=== PATIENT | male | born 1950 | race Caucasian/White ===

== ENCOUNTER → 2016-12-14 | Outpatient (CLI) | payer OTHER | LOC: FIMAGING 20:03 | PROVIDERS: ATTEND Internal Medicine | DX: M51.36 Other intervertebral disc degeneration, lumbar region (principal); E75.22 Gaucher disease; M51.34 Other intervertebral disc degeneration, thoracic region; M51.26 Other intervertebral disc displacement, lumbar region; M46.96 Unspecified inflammatory spondylopathy, lumbar region; M46.97 Unspecified inflammatory spondylopathy, lumbosacral region; M48.06 Spinal stenosis, lumbar region; M48.07 Spinal stenosis, lumbosacral region ==

== ENCOUNTER 2017-07-15 13:02 | Inpatient (IN) | payer OTHER ==
[2017-07-15] MEDS ORDERED: ONDANSETRON 4 MG/2 ML VIAL ONE (14:10)
[2017-07-15] MEDS ORDERED: NS 1,000 ML IV ONE ×2 (14:10→15:46)
[2017-07-15] MEDS ORDERED: ONDANSETRON 4 MG/2 ML VIAL IVP ONE (14:10)
--- NOTE | 2017-07-15 14:26 | EDPHY ---
General Narrative: CHIEF COMPLAINT: Vomiting diarrhea HISTORY OF PRESENT ILLNESS: Patient presents with complaints of 3 weeks duration of vomiting and diarrhea. He says this started gradually and has been constant duration. Symptoms wax and wane but never resolved. He feels very dehydrated, weak and head at times. No chest pain. No syncope. No shortness of breath. No bloody emesis or stool. The stool was clear 1st but now somewhat brown tinged. Seen by his primary care physician in the interim without any improvement of the symptoms. No formal workup. No other associated complaints or modifying factors. REVIEW OF SYSTEMS: Ten systems reviewed and are negative unless otherwise noted in the HPI PCP: Dr. Soriano SPECIALISTS: PAST MEDICAL HISTORY: Gaucher's disease, asplenia, neuropathy PAST SURGICAL HISTORY: splenectomy remotely SOCIAL HISTORY: Nonsmoker. FAMILY HISTORY: Noncontributory EXAMINATION General Appearance: Alert, no distress, ill-appearing but nontoxic Head: normocephalic, atraumatic Eyes: Pupils equal and round, no conjunctival pallor or injection ENT, Mouth: Mucous membranes dry. Airway is widely patent. Neck: Normal inspection, supple, non-tender Respiratory: Lungs are clear to auscultation. No wheezing, rhonchi or crackles Cardiovascular: Regular rate and rhythm. No murmur. Symmetric radial is 2+. Gastrointestinal: Abdomen is soft and nondistended. No tympany. No rigidity. Bowel sounds present all 4 quadrants Back: non-tender, no bony abnormalities Neurological: A&O, nonfocal, strength is symmetric in the extremities. Skin: Warm and dry, no rash. No petechiae or purpura. No ecchymosis. Extremities: Nontender, no pedal edema Psychiatric: Mood and affect normal DIFFERENTIAL DIAGNOSES: Including but not limited to gastroenteritis, enteritis, colitis, gastritis, dehydration, protein calorie malnutrition MDM: 2:10 p.m. Nausea, vomiting, diarrhea and weakness over the past 3 weeks. No bloody emesis or stool. No chest pain. No syncope. Patient does feel weak and dehydrated. He does appear to be dehydrated, but his vital signs are within normal limits. I have ordered IV placement, IV fluid, laboratory studies and stool pathogen panel. 3:00 p.m. Laboratory studies reveal normal hemoglobin. Chemistry pending. 3:20 p.m. Chemistry is within normal limits. Pre-albumin is low at 6.0. IV fluids still infusing. 3:45 p.m. Re-evaluated the patient. He is feeling somewhat better. No vomiting. No diarrhea. Still feels very weak. I discussed the case with his primary care physician Dr. Soriano. We are in agreement that the patient needs to be admitted to the hospital for IV fluid and further supplemental nutrition. Dr. Soriano is requesting further IV fluid resuscitation and iron studies as ordered. He admitted in stable condition. SUPERVISION: Patient was independently examined, but I discussed the case with my secondary supervising physician Dr. Marsh. - History Smoking Status: Former smoker - Objective Vital Signs: Initial Vital Signs Temperature (C) 97.5 F 07/15/17 13:03 Heart Rate 91 07/15/17 13:03 Respiratory Rate 20 07/15/17 13:03 Blood Pressure 105/82 H 07/15/17 13:03 O2 Sat (%) 94 07/15/17 13:03 O2 Delivery Mode Nasal Cannula O2 (L/minute) 2 Allergies/Adverse Reactions: trolamine salicylate [From Aspercreme] Allergy (Intermediate, Verified 07/15/17 13:03) Rash vancomycin Allergy (Verified 07/15/17 13:03) RASH AT IV SITE Home Medications: Medication Instructions Recorded DULoxetine [Cymbalta 30 MG (*)] 30 mg PO DAILY@1000 #0 cap 11/01/15 LORazepam [Ativan (*)] 1 mg PO TID@1000,1800,2200 #0 tab 11/01/15 Pregabalin [Lyrica 50mg (*)] 100 mg PO BID@1000,1800 #0 cap 11/01/15 Sulfamethox/Tmp 800/160 mg 1 ea PO BID@1000,2200 #0 tab 11/01/15 [Bactrim DS] Eliglustat Tartrate [Cerdelga] 84 mg PO BID 11/14/15 oxyCODONE/APAP 5/325 [Percocet 2 tab PO Q4 PRN #30 tab 11/18/15 5/325 (*)] Laboratory Results: Laboratory Results 07/15/17 14:16 07/15/17 14:16 07/15/17 07/15/17 14:16 14:16 WBC 5.59 10^3/uL 10^3/uL (3.80-9.50) RBC 3.93 10^6/uL L 10^6/uL (4.40-6.38) Hgb 12.0 g/dL L g/dL (13.7-17.5) Hct 34.3 % L % (40.0-51.0) MCV 87.3 fL fL (81.5-99.8) MCH 30.5 pg pg (27.9-34.1) MCHC 35.0 g/dL g/dL (32.4-36.7) RDW 17.7 % H % (11.5-15.2) Plt Count 677 10^3/uL H 10^3/uL (150-400) MPV 8.9 fL fL (8.7-11.7) Neut % (Auto) 70.1 % % (39.3-74.2) Lymph % (Auto) 19.9 % % (15.0-45.0) [place] % (Auto) 6.6 % % (4.5-13.0) Eos % (Auto) 0.7 % % (0.6-7.6) Baso % (Auto) 1.1 % % (0.3-1.7) Nucleat RBC Rel Count 0.4 % H % (0.0-0.2) Absolute Neuts (auto) 3.92 10^3/uL 10^3/uL (1.70-6.50) Absolute Lymphs (auto) 1.11 10^3/uL 10^3/uL (1.00-3.00) Absolute Monos (auto) 0.37 10^3/uL 10^3/uL (0.30-0.80) Absolute Eos (auto) 0.04 10^3/uL 10^3/uL (0.03-0.40) Absolute Basos (auto) 0.06 10^3/uL 10^3/uL (0.02-0.10) Absolute Nucleated RBC 0.02 10^3/uL H 10^3/uL (0-0.01) Immature Gran % 1.6 % H % (0.0-1.1) Immature Gran # 0.09 10^3/uL 10^3/uL (0.00-0.10) Sodium 135 mEq/L mEq/L (135-145) Potassium 3.8 mEq/L mEq/L (3.5-5.2) Chloride 98 mEq/L mEq/L (97-110) Carbon Dioxide 27 mEq/l mEq/l (22-31) Anion Gap 10 mEq/L mEq/L (8-16) BUN 14 mg/dL mg/dL (7-23) Creatinine 1.1 mg/dL mg/dL (0.7-1.3) Estimated GFR > 60 Glucose 104 mg/dL H mg/dL (70-100) Calcium 8.1 mg/dL L mg/dL (8.5-10.4) Total Bilirubin 0.6 mg/dL mg/dL (0.1-1.4) Conjugated Bilirubin 0.4 mg/dL mg/dL (0.0-0.5) Unconjugated Bilirubin 0.2 mg/dL mg/dL (0.0-1.1) AST 25 IU/L IU/L (17-59) ALT 27 IU/L IU/L (21-72) Alkaline Phosphatase 135 IU/L H IU/L (38-126) Total Protein 5.8 g/dL L g/dL (6.3-8.2) Albumin 2.9 g/dL L g/dL (3.5-5.0) Prealbumin 6.0 mg/dL L mg/dL (17.6-36.0) Lipase 34 IU/L IU/L (23-300) Medications Given: Discontinued Medications Sodium Chloride (Ns) 1,000 mls @ 0 mls/hr IV EDNOW ONE; Wide Open PRN Reason: Protocol Stop: 07/15/17 14:11 Last Admin: 07/15/17 14:19 Dose: 1,000 mls Ondansetron HCl (Zofran) 4 mg IVP EDNOW ONE Stop: 07/15/17 14:11 Last Admin: 07/15/17 14:19 Dose: 4 mg Departure - Departure Disposition: [facility] Acute Clinical Impression: Hypovolemia dehydration, Protein-calorie malnutrition, mild Condition: Good
[2017-07-15 14:28] LABS: PLATELET COUNT 677 10^3/uL (150-400)
[2017-07-15] MEDS: D5W 1/2 NS W/ 20 KCl/L 1,000 ML IV SCH (20:46)
[2017-07-15] MEDS: LORazepam 1 MG TAB PO SCH (22:04)
[2017-07-15] MEDS: oxyCODONE IR 5 MG TAB PO SCH (22:04)
[2017-07-15] MEDS: methylPREDNISolone SOD SUCC 40 MG/ML VIAL IVP SCH (22:04)
[2017-07-16] MEDS: D5W 1/2 NS W/ 20 KCl/L 1,000 ML IV SCH ×3 (03:39→21:54)
--- NOTE | 2017-07-16 07:45 | GHP ---
[f rep st] HISTORY AND PHYSICAL DATE OF ADMISSION: 07/15/2017 REASON FOR ADMISSION: Diarrhea, weakness. HISTORY: Patient is a 66-year-old male with history of Gaucher disease as well as ulcerative colitis . He has also had recurrent iron deficiency anemia. He has had recurrent bouts of colitis over the last year, requiring intermittent courses of prednisone. When he gets off the prednisone, he tends t o get a recurrence of the colitis. He is having increased symptoms of diarrhea, some fever over the last 3 weeks. He presents with weakness, persistent diarrhea, and feeling like he is not able to valorie e in adequate fluids. PAST MEDICAL HISTORY: Significant for multiple joint replacements as well as an infection in a repla margo hip joint. REVIEW OF SYSTEMS: He has had a very dry mouth. It is almost difficult to swallow, his mouth is so dry. No shortness of breath, chest pain, or palpitations. He has had persistent frequent diarrhea, but only occasional streaks of blood, not the usual bloody diarrhea he has had in the past. PHYSICAL EXAMINATION: GENERAL APPEARANCE: Shows a 66-year-old male who appears to be weak and older than his stated age. VITAL SIGNS: Blood pressure is 114/72, pulse is 62, oxygen saturation 95% on 2 L. EYES: Pupils equal and reactive. LUNGS: Clear to auscultation. HEART: Regular rate and rhy thm. ABDOMEN: Bowel sounds are present, slightly diminished. He has no abdominal tenderness. EXTR EMITIES: No peripheral edema. Moves all extremities well. NEUROLOGIC: He is oriented to time, cortez ce, and person. He is able to produce a somewhat brown to maroon-appearing loose stool, which has been sent to the [facility] for further evaluation. IMPRESSION: 1. Diarrhea. 2. Weakness. 3. Gaucher disease. 4. Ulcerative colitis. PLAN: Will admit. Will hydrate. Send stools for pathology. Will initiate intravenous Solu-Medrol. /[id number]/MODL
[2017-07-16] MEDS ORDERED: HERBAL DRUGS PO SCH (09:00)
[2017-07-16] MEDS: [UNRECOGNIZED DRUG - OTHER] PO SCH ×2 (09:55→21:52)
--- NOTE | 2017-07-16 10:35 | ASMTCASEMG ---
Living Arrangements What is your living Answers: Alone arrangement? Who do you live with? Type Of Residence What kind of residence do Answers: Apartment you live in? Discharge Plan Comments Coordination Status Comments Notes: Patient is a 66yo single male with a hx of Gaucher disease as well as ulcerative colitis. He was admitted for diarrhea, weakness, and dehydration. No therapies have been ordered yet. CM will follow. Date Signed: 07/16/2017 10:35 AM Electronically Signed By:Lupe Pandya LCSW
[2017-07-16] MEDS: DULoxetine 30 MG CAP PO SCH (10:36)
[2017-07-16] MEDS: methylPREDNISolone SOD SUCC 40 MG/ML VIAL IVP SCH ×2 (10:36→22:04)
[2017-07-16] MEDS: LORazepam 1 MG TAB PO SCH ×3 (10:36→21:52)
[2017-07-16] MEDS: oxyCODONE IR 5 MG TAB PO SCH ×3 (10:36→21:52)
[2017-07-16] MEDS: PREGABALIN 100 MG CAP PO SCH ×2 (12:51→18:52)
[2017-07-17] MEDS: D5W 1/2 NS W/ 20 KCl/L 1,000 ML IV SCH (06:51)
--- NOTE | 2017-07-17 07:33 | SOAPPROG ---
Downtime Inpatient MD Late Entry SOAP Note: Due to human errorS", I am recreating the following medical record entry as of this date and time based on the information specified below: Information on which this medical record entry is based: (MD: Please list items, such as nursing notes, labs, imaging, etcetera) S: Diarrhea is mildly improved. He is hungry. O: stool negative for pathogens. Lungs clear. ABD non-tener. Stool positive for blood. A: Ulcerative colitis. Gauche's disease. Anemia from chronic blood loss and Gauche's disease. P: will increase steroid dose. FOllow symptoms.
[2017-07-17] MEDS: methylPREDNISolone SOD SUCC 40 MG/ML VIAL IVP SCH ×2 (08:02→20:34)
[2017-07-17] MEDS: [UNRECOGNIZED DRUG - OTHER] PO SCH ×2 (08:02→20:35)
[2017-07-17] MEDS: oxyCODONE IR 5 MG TAB PO SCH ×3 (08:02→21:55)
[2017-07-17] MEDS: DULoxetine 30 MG CAP PO SCH (09:34)
[2017-07-17] MEDS: PANTOPRAZOLE SODIUM 40 MG TAB PO SCH ×2 (09:34→20:34)
[2017-07-17] MEDS: LORazepam 1 MG TAB PO SCH ×3 (09:34→21:55)
[2017-07-17] MEDS: PREGABALIN 100 MG CAP PO SCH ×2 (09:34→18:01)
--- NOTE | 2017-07-17 21:08 | SOAPPROG ---
SOAP Progress Note Assessment/Plan: Assessment:ulcerative colitis. Gauche's disease. IMproving with hydreation and steroids. Plan: Stop IV. continue with increased dose of steroids. Follow closely. 07/17/17 21:07 Subjective: doing a little better. Diarrhea is a little more formed. Objective: Vital Signs Temp Pulse Resp BP Pulse Ox 97.9 F 56 L 16 107/69 94 07/17/17 20:57 07/17/17 20:57 07/17/17 20:57 07/17/17 20:57 07/17/17 20:57 07/16/17 07/17/17 07/18/17 05:59 05:59 05:59 Intake Total 1166 1915 1472 Balance 1166 1915 1472 Lungs clear. NO abdominal tenderness. COR RRR ICD10 Worksheet Patient Problems: Problems Problem Status Onset Hypovolemia dehydration Acute Protein-calorie malnutrition, mild Acute Diarrhea Acute Fever Acute Hematochezia Acute Ulcerative (chronic) enterocolitis Acute
[2017-07-18 05:40] LABS: PLATELET COUNT 544 10^3/uL (150-400)
[2017-07-18] MEDS: DULoxetine 30 MG CAP PO SCH (09:50)
[2017-07-18] MEDS: oxyCODONE IR 5 MG TAB PO SCH ×3 (09:50→21:28)
[2017-07-18] MEDS: LORazepam 1 MG TAB PO SCH ×3 (09:50→21:28)
[2017-07-18] MEDS: PREGABALIN 100 MG CAP PO SCH ×2 (09:51→16:47)
[2017-07-18] MEDS: PANTOPRAZOLE SODIUM 40 MG TAB PO SCH ×2 (09:51→21:28)
[2017-07-18] MEDS: [UNRECOGNIZED DRUG - OTHER] PO SCH ×2 (09:53→21:29)
--- NOTE | 2017-07-18 09:56 | SOAPPROG ---
SOAP Progress Note Assessment/Plan: Assessment: 66 yo male with Gaucher's, UC, admitted w/ diarrhea and weakness progressive for a couple weeks prior to admission. -diarrhea has stopped, feels better, energy slowly increasing, will change from IV solumedrol to po prednison bid starting tonight after IV dose this am. -decreased h/h - likely in part due to dilution, heme + but has known diarrhea and UC - will recheck h/h and follow closely, consider GI consult if further drop in h/h -anxiety - cont on lorazepam/duloxetine -dispo - if doing ok on oral pred starting tonight, h/h stable in am consider d/ c home tomorrow as long as GI sx's still good -will write order for not to awaken pt while sleeping for vitals Plan: 07/18/17 09:52 Subjective: Doing ok, unhappy with being woken up last night, bowels better Objective: Vital Signs Temp Pulse Resp BP Pulse Ox 36.3 C 73 18 116/70 90 L 07/18/17 08:44 07/18/17 08:44 07/18/17 08:44 07/18/17 08:44 07/18/17 08:44 Laboratory Results 07/18/17 04:44 07/18/17 04:44 07/17/17 07/18/17 07/19/17 05:59 05:59 05:59 Intake Total 1914 162 Balance 1914 162 Gen: tired, oriented NecK soft supple Chest cta b CV rrr Abd soft nt Ext no edema - Pending Discharge Pending Discharge Within 48 Hours: Yes Pending Discharge Date: 07/20/17 Pending Discharge Time: 11:00 ICD10 Worksheet Patient Problems: Problems Problem Status Onset Fever Acute Diarrhea Acute Hematochezia Acute Ulcerative (chronic) enterocolitis Acute Hypovolemia dehydration Acute Protein-calorie malnutrition, mild Acute
[2017-07-18] MEDS: methylPREDNISolone SOD SUCC 40 MG/ML VIAL IVP SCH (10:17)
--- NOTE | 2017-07-18 14:59 | ASMTCMCOM ---
CM Note CM Note Notes: Anticipate pt will DC with no needs. CM available if needs change. Date Signed: 07/18/2017 02:59 PM Electronically Signed By:Becka Shelby LCSW
[2017-07-18] MEDS: predniSONE 20 MG TAB PO SCH (16:47)
[2017-07-18 20:40] VITALS: RESP 16
--- NOTE | 2017-07-19 09:00 | SOAPPROG ---
KE[facility] Progress Note Assessment/Plan: Assessment: Plan: 07/19/17 08:59 UC--improved d/c home, would suggest new med plan for manager terminal control. discussed in detail low testosterone--will need to resume therapy anemia--acute due to UC Subjective: Doing better. Lots of challenges with diagnoses Objective: Vital Signs Temp Pulse Resp BP Pulse Ox 36.6 C 50 L 16 130/84 H 92 07/18/17 20:00 07/18/17 20:00 07/18/17 20:00 07/18/17 20:00 07/18/17 20:00 Laboratory Results 07/18/17 04:44 07/18/17 04:44 07/18/17 07/19/17 07/20/17 05:59 05:59 05:59 Intake Total 1622 1100 Balance 1622 1100 Gen: pale, stable Lungs: CTAB Heart: RRR Abd + bs soft nt, nd ICD10 Worksheet Patient Problems: Problems Problem Status Onset Hypovolemia dehydration Acute Protein-calorie malnutrition, mild Acute Diarrhea Acute Fever Acute Hematochezia Acute Ulcerative (chronic) enterocolitis Acute
[2017-07-19 09:18] VITALS: BP 118/77; PULSE 56; TEMP 97.7; O2SAT 90
[2017-07-19] MEDS: DULoxetine 30 MG CAP PO SCH (09:49)
[2017-07-19] MEDS: oxyCODONE IR 5 MG TAB PO SCH (09:49)
[2017-07-19] MEDS: PREGABALIN 100 MG CAP PO SCH (09:49)
[2017-07-19] MEDS: [UNRECOGNIZED DRUG - OTHER] PO SCH (09:50)
[2017-07-19] MEDS: PANTOPRAZOLE SODIUM 40 MG TAB PO SCH (09:50)
[2017-07-19] MEDS: LORazepam 1 MG TAB PO SCH (09:50)
[2017-07-19] MEDS: predniSONE 20 MG TAB PO SCH (09:56)
--- NOTE | 2017-07-19 13:05 | GDS ---
[f rep st] DISCHARGE SUMMARY REASON FOR ADMISSION: Uncontrolled ulcerative colitis. DISCHARGE DIAGNOSES: Uncontrolled ulcerative colitis. HOSPITAL COURSE: Patient was admitted due to unrelenting ulcerative colitis symptoms with bloody gerard rrhea, weakness, fatigue, and dehydration. He was given IV fluids. He was started on IV Medrol for control of UC with gradual improvement. He has been transitioned to p.o. prednisone 20 mg twice christopher y with stable control of the symptoms. Eating and drinking has improved. Bowel pattern is improved. Grossly bloody stools have resolved. Hemoglobin did drop from 12 to 9, there is probably some dilu tion effect on there. He has a history of chronic anemia, this has likely exacerbated things. He jennings s had several flares of UC and has had difficulty getting off prednisone. We discussed the likely ne ed to transition to a more potent disease monitoring medication, but he has appropriate reservations. Underlying testosterone deficiency has not been replaced recently. I think he would benefit from r esuming some form of replacement, topical testosterone cream would probably be a reasonable solution. Underlying anemia will need to be followed as an outpatient. Chronic pain is stable. Sy michaels e, continue with current replacement plan as per Dr. Soriano. He will have outpatient followup with Dr. Soriano in the next week. /[id number]/MODL
--- NOTE | 2017-07-20 15:09 | ASDISCHSUM ---
Discharge Information Plan Status: Medically Cleared to Leave: Discharge Date:07/19/2017 10:50 AM CM D/C Disposition: ADT D/C Disposition:Home, Routine, Self-Care Projected Discharge Date:07/19/2017 10:50 AM Transportation at D/C: Discharge Delay Reason: Follow-Up Date:07/19/2017 10:50 AM Discharge Slot: Final Diagnosis: Placement Information Patient Contact Information Contact Name:GLORIA Relationship: Address: City: [facility] Phone: State/Zip Code: Email: Financial Information Financial Class: Primary Plan Desc:MEDICARE INPATIENT Primary Plan Number:[id number] [facility] Secondary Plan Number:[id number] Assessment Information [facility] Initial CM Assessment Living Arrangements What is your living Answers: Alone arrangement? Who do you live with? Type Of Residence What kind of residence do Answers: Apartment you live in? Discharge Plan Comments Coordination Status Comments Notes: Patient is a 66yo single male with a hx of Gaucher disease as well as ulcerative colitis. He was admitted for diarrhea, weakness, and dehydration. No therapies have been ordered yet. CM will follow. Date Signed: 07/16/2017 10:35 AM Electronically Signed By:Lupe Pandya LCSW [facility] CM Progress Note CM Note CM Note Notes: Anticipate pt will DC with no needs. CM available if needs change. Date Signed: 07/18/2017 02:59 PM Electronically Signed By:Becka Shelby LCSW Intervention Information Intervention Type:*Incorrect Registration Date of Service:07/16/2017 12:46 PM Patient Type:Observation Staff Member:MARIA R Lorenzana Courtney Hours: Discipline: Severity: Comment: Intervention Type:*IM-Signed Date of Service:07/19/2017 10:08 AM Patient Type:Inpatient Staff Member:Giovanna Payne Hours: Discipline: Severity: Comment:
== END 2017-07-19 10:50 | disposition home or self-care (01) | DRG 387 ==
LOC: F1N 17:46 → OBSVTOIN 18:37
PROVIDERS: ADMIT Internal Medicine; ATTEND Internal Medicine
DX: K51.90 Ulcerative colitis, unspecified, without complications (principal); D50.0 Iron deficiency anemia secondary to blood loss (chronic); E75.22 Gaucher disease; Z87.891 Personal history of nicotine dependence; Z96.60 Presence of unspecified orthopedic joint implant; Z79.52 Long term (current) use of systemic steroids
CPT/HCPCS: 84134-90; 96374; J2405; J2920; J7512

== ENCOUNTER 2017-10-15 16:22 | Inpatient (IN) | payer OTHER ==
--- NOTE | 2017-10-15 18:36 | GHP ---
[f rep st] HISTORY AND PHYSICAL DATE OF ADMISSION: 10/15/2017 REASON FOR ADMISSION: Severe back pain, hypoxia. HISTORY: The patient is a 67-year-old male who presents on his birthday with severe back pain. He has chronic low back pain, but today presents with severe onset of acute worsening back pain. He has ulcerative colitis which is currently controlled on 10 mg of prednisone alternating with 7 mg of prednisone every other day. His back is significantly worsened. 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 He also has a history of previous hip joint infection status post hip joint replacement. He has been on chronic suppressive antibiotics with doxycycline. PAST MEDICAL HISTORY: Significant for diffuse Gaucher disease, multilevel degenerative disk disease, L4-5 severe canal stenosis, L3-4 moderate canal stenosis, L2-3 moderate canal stenosis with significant arthritis. He has ulcerative colitis with iron deficiency anemia, prior migraines, osteoporosis, lipidosis, vitamin D deficiency, organic sleep apnea for which he has not been able to tolerate CPAP, chronic low-grade hypoxemia which today is substantially worse, history of elevated PSA, previous osteomyelitis, testicular hypofunction , prior kidney stones. CURRENT MEDICATIONS: Prednisone 10 mg, alternating with 7 mg every other day. Depo-Testosterone 100 mg IM every week. Oxycodone 10 mg 3 times a day as needed for pain. Cerdelga 4 mg capsules 1 capsule by mouth twice daily. Doxycycline 100 mg once daily. Mesalamine 800 mg 2 tablets 3 times daily. Ativan 1 mg 3 times daily as needed. Lyrica 100 mg twice daily. Duloxetine 30 mg p.o. daily. Vitamin D3 at 6000 international units daily. Calcium 1200 mg daily. Vitamin C 1000 mg daily. He will sometimes take Bactrim 480 two tablets daily. Curcumin 500 mg 4 daily. PHYSICAL EXAM: GENERAL: A 67-year-old who has intermittent lancinating pain in his back radiating down both legs. VITAL SIGNS: Blood pressure 122/74, temperature is 96, pulse 75, respirations 16, oxygen saturations 80% on room air. PSYCHIATRIC: He is alert and oriented and appropriate. HEENT: Normocephalic, atraumatic. Mouth was moist. NECK: Supple. LUNGS: Clear to auscultation. HEART: Regular rate and rhythm without murmur. ABDOMEN: Nontender. SPINE: He does no spinal tenderness to palpation or percussion. NEUROLOGIC: exam demonstrates 2+ knee jerk, 1+ ankle jerk reflexes. He is alert, oriented, and appropriate. IMPRESSION: Hypoxia, recent weight gain, ulcerative colitis reasonably controlled, Gaucher disease, lumbago with sciatica and history of spinal stenosis which is substantially worse. PLAN: I will admit him for further evaluation. Because of his hypoxia, I am very reluctant to give him narcotic pain medications or Ativan, and with his history of sleep apnea, he may become dangerously hypoxic when he goes to sleep with benzodiazepines and narcotics. Will repeat the MRI of his lumbar spine to see if there has been progression of his disease. Will consider getting a Gastroenterology consult and a Neurosurgical consult while he is in the hospital. /[id number]/MODL MTDD
[2017-10-15 19:44] LABS: PLATELET COUNT 381 10^3/uL (150-400)
[2017-10-15] MEDS: LORazepam 1 MG TAB PO SCH (22:31)
[2017-10-15] MEDS: oxyCODONE IR 15 MG TAB PO PRN (22:31)
[2017-10-16] MEDS: oxyCODONE IR 15 MG TAB PO PRN ×4 (05:01→18:50)
[2017-10-16] MEDS: CHOLECALCIFEROL VIT D3 2,000 UNITS TAB/CAP PO SCH (09:10)
[2017-10-16] MEDS: [UNRECOGNIZED DRUG - OTHER] PO SCH ×2 (09:11→21:09)
[2017-10-16] MEDS: DOXYCYCLINE HYCLATE 100 MG CAP/TAB PO SCH ×2 (09:11→21:09)
[2017-10-16] MEDS: DIAZEPAM 5 MG TAB PO PRN (09:11)
[2017-10-16] MEDS: predniSONE 5 MG TAB PO SCH (09:11)
[2017-10-16] MEDS: predniSONE 1 MG TAB PO SCH (09:26)
[2017-10-16] MEDS: DULoxetine 30 MG CAP PO SCH (10:55)
[2017-10-16] MEDS: PREGABALIN 50 MG CAP PO SCH ×2 (10:55→17:37)
[2017-10-16] MEDS: LORazepam 1 MG TAB PO SCH ×3 (10:55→21:09)
[2017-10-16] MEDS ORDERED: HYDROmorphONE/DILAUDID 1 MG/ML INJ IVP PRN (11:21)
[2017-10-16] MEDS ORDERED: HYDROmorphONE/DILAUDID 2 MG/ML INJ IVP PRN (11:26)
--- NOTE | 2017-10-16 13:28 | PDMN ---
Medical Necessity Medical necessity: est los>2mn for hypoxia, recent weight gain, and acute severe back pain; high risk for narcotic or benzodiazepine use r/t YOEL; multiple comorbid conditions, including DDD, spinal stenosis, Gaucher disease, ulcerative colitis, anemia, osteoporosis, admit for IV pain med, imaging, and possible GI and neuro consults; per order and H&P 10/15/17
[2017-10-16] MEDS: HYDROmorphone HCL/NS 0.5 MG/ML SYR IVP PRN ×2 (17:37→21:07)
--- NOTE | 2017-10-16 20:31 | GCON ---
[f rep st] CONSULTATION INPATIENT CONSULTATION DATE OF CONSULTATION: 10/16/2017 CHIEF COMPLAINT: Low back pain, bilateral leg pain. HISTORY OF PRESENT ILLNESS: The patient is a 67-year-old gentleman who has an over 12-year history of lower back pain, which he has been able to tolerate the symptoms of up until recently. The patient experienced increasing pain progressing over the last week and does not identify any precipitating cause. The patient describes his symptoms as severe lower back pain with bilateral posterior leg pain. Patient feels his symptoms are slightly worse on the left than they are the right. He denies any new weakness in his legs, but does find it difficult to ambulate due to the level of pain. The patient denies any saddle anesthesia and denies any bowel or bladder problems. 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 He has been on chronic suppressive antibiotics as well due to previous hip joint infections, status post hip replacements. REVIEW OF SYSTEMS: A 10-point review of systems was performed and negative aside from what was mentioned in the HPI. PAST MEDICAL HISTORY: 1. Gaucher disease. 2. Degenerative disk disease. 3. Lumbar stenosis. 4. Ulcerative colitis with iron-deficiency anemia. 5. Migraines. 6. Osteoporosis. 7. Lipidosis. 8. Vitamin D deficiency. 9. Organic sleep apnea. 10. Chronic hypoxemia. 11. History of elevated PSA. 12. History of osteomyelitis. 13. Kidney stones. PAST SURGICAL HISTORY: Significant for multiple bilateral hip surgeries that started dating back to the 1970s. CURRENT MEDICATIONS: Prednisone 10 mg, alternating with 7 mg every other day; Depo-Testosterone 100 mg IM q.week; oxycodone 10 mg t.i.d. p.r.n.; Cerdelga 84 mg capsules b.i.d.; doxycycline 100 mg daily; mesalamine 800 mg t.i.d.; Ativan 1 mg t.i.d. p.r.n.; Lyrica 100 mg b.i.d.; duloxetine 30 mg daily; vitamin D3 6000 international units daily; calcium 1200 mg daily; vitamin C 1000 mg daily; curcumin 500 mg daily. ALLERGIES: Trolamine salicylate and vancomycin. FAMILY HISTORY: Family medical history was reviewed, and patient does not have any pertinent history related to current situation. SOCIAL HISTORY: The patient is retired. He does not drink alcohol. He does not use nicotine products. He denies any use of illicit drug use. LABORATORY RESULTS: White blood cell count 10.75, hemoglobin 10.8, hematocrit 34.0. Platelets are 381. ESR is 16. Sodium 139, potassium 4.1. BUN is 14, creatinine 0.7. CRP is 40. Glucose is 88. DIAGNOSTIC IMAGING: Lumbar spine MRI without contrast performed on October 15, 2017 demonstrates an abnormal bone marrow signal in the vertebral bodies and pelvis, which is chronic and attributable to his known Gaucher disease; chronic severe spinal stenosis, worse at L4-5, with unchanged moderate stenosis at L2-3 and L3-4; multilevel severe degenerative disk space narrowing with osteophytes and associated osteo-foraminal narrowing; chronically atrophic right iliopsoas muscle. 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 EXAM: VITAL SIGNS: Blood pressure is 117/71, heart rate 67. Oxygen saturation is 93% on 2 L nasal cannula. Respiratory rate is 18. Temperature is 36.9 degrees Celsius. HEENT: Head is normocephalic and atraumatic. Pupils are equal, round, and reactive to light. EOMs intact. Full visual segovia by confrontation. RESPIRATORY AND CARDIAC: Deferred. ABDOMEN, GENITOURINARY, AND RECTAL: Deferred. NEUROLOGIC: The patient is awake and alert and oriented to name, place , location, date, time, and situation. His memory is intact to immediate, past and current events. Speech: No aphasia or dysphonia. Cranial nerves 2-12 are grossly intact. Motor: Patient has 5/5 strength in all muscle groups in bilateral upper and lower extremities to include deltoids, biceps, triceps, brachioradialis, wrist flexion, extensors, cnc service engineer, intrinsic fingers, iliopsoas, quadriceps, hamstrings, plantar flexion, dorsiflexion, EHL testing. The patient does have mild weakness in the right EHL and right TA of 5-/5. Sensation is grossly intact to light touch throughout all dermatomal distributions, bilateral lower extremities. Negative straight leg raise. Negative BRETT test. Reflexes: Biceps, triceps, brachioradialis are 2+/4. Knee jerk and ankle jerk are absent bilaterally. Toes are downgoing bilaterally. Tarsha sign is negative, and there is no evidence of clonus. Gait not assessed. ASSESSMENT AND PLAN: The patient is a 67-year-old gentleman with a 12-year history of lumbar symptoms. The patient progressively got worse over the last week and was admitted with severe lower back pain, as well as severe bilateral posterior leg pain. MRI of the lumbar spine demonstrates severe stenosis at L4- 5 with moderate stenosis at L3-4. Xrays demonstrated ddd with diffuse abnormal bone marrow and possible bilateral sacral insufficiency fractures. The patient is currently on Lyrica and oral pain medications and is rating his pain at 10/ 10. We dscussed possible surgical options, including a decompressive laminectomy at L3-4 and L4-5. A fusion would not be suggested at this time with the use of chronic steroids and questionable bone quality. We will get a CT of the lumbar/sacrum to eval for insufficiency fractures. The patient would like to think about surgery and will let us know how he would like to proceed. Dr. Marshall will be by to speak with the patient later this afternoon to see. Please call Neurosurgery with any questions or concerns. The patient was seen and examined by myself in room 147 today, October 16, 2017, at 11:45 a.m. NEUROSURGERY ATTENDING NOTE I met with the patient on the evening of the consult for over 35 minutes myself. Had an extensive conversation about his treatment options after reviewing his imaging studies. He presents with intractable back pain and difficulty with ambulation. He has a very complicated medical history and known prior infections with any invasive procedures and surgeries. His imaging demonstrates advanced degenerative changes in his spine with severe spinal stenosis L4/5. There are multiple areas of moderate stenosis as well and foraminal stenosis. I reviewed with him the options of pain medications, injections, and surgery. His pain is not controlled despite pain medications and I offered him injections and versus surgery. He is reluctant to do any injections because of the prior infection he developed. I also reviewed the surgery options, which would be a single level decompression L4/5 versus a larger surgery to address his diffuse spondylosis. Given his medial history and propensity for infections, the smallest possible surgery to address his stenosis is likely the safest way to proceed. I reiterated to him that the goal of surgery was to help him be more functional and that it would NOT address ALL of his back issues and, arguably, less so his back pain then his stenosis symptoms. He is willing to proceed with surgery in the way of an L4/5 decompression/laminectomy. Risks of surgery were reviewed, including (but not limited to) infection, bleeding, need for further surgery, CSF leak, stroke, MS , , no improvement, worsening of symptoms, etc. He is willing to proceed. Surgery has been scheduled for SaturdayOctober 18 at 2 pm. I have also been in contact with his PCP who feels he is medically ready for surgery. /[id number]/MODL MTDD
--- NOTE | 2017-10-16 21:15 | SOAPPROG ---
SOAP Progress Note Assessment/Plan: Assessment:Severe spinal stenosis. UC stable on current dose of medication. Gaucher's disease, stable on treatment. Plan: Neuro surg consult to evaluate for possible surgical treatment of spinal stenosis. 10/16/17 21:12 Subjective: Still having a lot of pain. Oral oxycodone is not effective in relieving it. Bowel symptoms are stable. He cannot rn transplant in bed without severe pain. Objective: Vital Signs Temp Pulse Resp BP Pulse Ox 98 F 79 20 124/79 H 90 L 10/16/17 20:50 10/16/17 20:53 10/16/17 20:53 10/16/17 20:50 10/16/17 20:53 Laboratory Results 10/15/17 19:30 10/15/17 19:30 10/15/17 10/16/17 10/17/17 05:59 05:59 05:59 Intake Total 250 250 Output Total 400 Balance -150 250 Lungs clear. MRi reviewed. VS stable. ICD10 Worksheet Patient Problems: Problems Problem Status Onset Diarrhea Acute Fever Acute Hematochezia Acute Hypovolemia dehydration Acute Protein-calorie malnutrition, mild Acute Ulcerative (chronic) enterocolitis Acute
[2017-10-17] MEDS: DIAZEPAM 5 MG TAB PO PRN (00:45)
--- NOTE | 2017-10-17 07:33 | SOAPPROG ---
SOAP Progress Note Assessment/Plan: Assessment: 67 yo M with low back pain and lower extremity radicular leg pain likely from L4/5 stenosis Plan: neuro: stable, plan for surgery tomorrow around [address] Marshall NPO after midnight PT/OT will do consents later today please call with neuro changes discussed with Dr Marshall 10/17/17 07:31 Subjective: continued back pain and leg pain, Objective: Vital Signs Temp Pulse Resp BP Pulse Ox 36.2 C 66 18 128/74 H 95 10/17/17 06:20 10/17/17 06:20 10/17/17 06:20 10/17/17 06:20 10/17/17 06:20 Laboratory Results 10/15/17 19:30 10/15/17 19:30 10/16/17 10/17/17 10/18/17 05:59 05:59 05:59 Intake Total 250 1090 Output Total 400 400 Balance -150 690 AAOX4, +FC PERRL, EOMI, no facial droop 5/5 + light touch ICD10 Worksheet Patient Problems: Problems Problem Status Onset Diarrhea Acute Fever Acute Hematochezia Acute Hypovolemia dehydration Acute Protein-calorie malnutrition, mild Acute Ulcerative (chronic) enterocolitis Acute
--- NOTE | 2017-10-17 09:02 | SOAPPROG ---
SOAP Progress Note Assessment/Plan: Assessment: Plan: 10/17/17 09:02 Spinal stenosis: surgery planned for tomorrow afternoon Ulcerative colitis: stable Subjective: No significant changes. Still with pain. Most comfortable if he lies on his back. Able to get up to urinate. Eating. Bowels moving well. Objective: Vital Signs Temp Pulse Resp BP Pulse Ox 36.4 C 63 18 121/84 H 94 10/17/17 08:00 10/17/17 08:00 10/17/17 08:00 10/17/17 08:00 10/17/17 08:00 Laboratory Results 10/15/17 19:30 10/15/17 19:30 10/16/17 10/17/17 10/18/17 05:59 05:59 05:59 Intake Total 250 1090 Output Total 400 400 Balance -150 690 General: lying in bed, awake Lungs: decreased breath sounds but exam limited as difficult for pt to sit up or roll to side Cardiovascular: RRR without murmur Abdomen: +bowel sounds, soft, NT Extremities: no edema ICD10 Worksheet Patient Problems: Problems Problem Status Onset Diarrhea Acute Fever Acute Hematochezia Acute Hypovolemia dehydration Acute Protein-calorie malnutrition, mild Acute Ulcerative (chronic) enterocolitis Acute
[2017-10-17] MEDS: predniSONE 10 MG TAB PO SCH (09:03)
[2017-10-17] MEDS: DULoxetine 30 MG CAP PO SCH (09:03)
[2017-10-17] MEDS: CHOLECALCIFEROL VIT D3 2,000 UNITS TAB/CAP PO SCH (09:03)
[2017-10-17] MEDS: PREGABALIN 50 MG CAP PO SCH ×2 (09:03→17:56)
[2017-10-17] MEDS: DOXYCYCLINE HYCLATE 100 MG CAP/TAB PO SCH ×2 (09:03→20:55)
[2017-10-17] MEDS: oxyCODONE IR 15 MG TAB PO PRN ×3 (09:04→22:10)
[2017-10-17] MEDS: LORazepam 1 MG TAB PO SCH ×3 (09:04→22:10)
[2017-10-17] MEDS: [UNRECOGNIZED DRUG - OTHER] PO SCH ×2 (09:09→20:55)
[2017-10-17] MEDS: HYDROmorphone HCL/NS 0.5 MG/ML SYR IVP PRN (09:55)
--- NOTE | 2017-10-17 10:04 | ASMTCMCOM ---
CM Note CM Note Notes: Pt to have back surgery tomorrow. DC needs are TBD. Date Signed: 10/17/2017 10:04 AM Electronically Signed By:Becka Shelby LCSW
[2017-10-17] MEDS ORDERED: GABAPENTIN 300 MG CAP PO ONE (12:10)
[2017-10-17] MEDS ORDERED: ACETAMINOPHEN 500 MG TAB PO ONE (12:10)
[2017-10-17] MEDS ORDERED: ceFAZolin 2 GM/SWFI 2 GM/20 ML SYR IVP ONE (12:10)
[2017-10-18] MEDS: oxyCODONE IR 15 MG TAB PO PRN ×4 (04:52→22:57)
[2017-10-18] MEDS: DIAZEPAM 5 MG TAB PO PRN ×2 (04:56→22:57)
[2017-10-18] MEDS ORDERED: ceFAZolin 2 GM/SWFI 2 GM/20 ML SYR IVP ONE (06:00)
[2017-10-18] MEDS ORDERED: ACETAMINOPHEN 500 MG TAB PO ONE (06:00)
[2017-10-18] MEDS ORDERED: GABAPENTIN 300 MG CAP PO ONE (06:00)
[2017-10-18] MEDS: HYDROmorphone HCL/NS 0.5 MG/ML SYR IVP PRN (08:02)
[2017-10-18] MEDS: DULoxetine 30 MG CAP PO SCH (10:11)
[2017-10-18] MEDS: PREGABALIN 50 MG CAP PO SCH ×2 (10:11→18:13)
[2017-10-18] MEDS: predniSONE 1 MG TAB PO SCH (10:11)
[2017-10-18] MEDS: DOXYCYCLINE HYCLATE 100 MG CAP/TAB PO SCH ×2 (10:11→22:08)
[2017-10-18] MEDS: predniSONE 5 MG TAB PO SCH (10:12)
[2017-10-18] MEDS: CHOLECALCIFEROL VIT D3 2,000 UNITS TAB/CAP PO SCH (10:12)
[2017-10-18] MEDS: LORazepam 1 MG TAB PO SCH ×3 (10:12→22:08)
[2017-10-18] MEDS: [UNRECOGNIZED DRUG - OTHER] PO SCH ×2 (10:15→22:08)
--- NOTE | 2017-10-18 11:13 | PDHPUP ---
History & Physical Update H&P update statement: This history and physical update is based on an assessment of the patient which was completed after admission or registration (within 24 hours), but prior to the surgery/procedure. H&P update: H&P reviewed & patient examined, no change in patient's condition since H&P completed (I met with the patient this morning and reviewed the surgical plan and goals/outcomes. He has severe low back pain and bilateral leg symptoms. Reviewed that he has severe spinal stenosis at judson L4/5 level and goal of surgery would be a decompression alone (he is not healthy enough and his bones are not strong enough to support any hardware for a fusion). This limits the type of surgery we can perform and how much pain we can provide him, but hopefully get him functional enough to be able to leave the hospital with improved pain control. Reviewed risks of surgery and consents have been signed and his surgical site marked. All questions answered.)
--- NOTE | 2017-10-18 11:27 | NEUSURGPN ---
Assessment/Plan: Assessment: 67 yo M with low back pain and lower extremity radicular leg pain likely from L4/5 stenosis Plan: To OR today for L4/5 decompression. Risks, benefits and alternatives discussed. Consents on the chart. Patient marked. Preop OP antibiotics ordered Patient will need stress dose of steroids prior surgery given his chronic steroid use. Patient was seen by Dr Marshall and myself. Subjective: hip/leg pain Objective: NAD A&Ox3 MAEx4 5/5 and equal in BUE and BLE. - Physician Patient Seen by Dr.: Joanna Neurosurgery Physical Exam - Vitals, I&O, Labs I and O 10/17/17 10/18/17 10/19/17 05:59 05:59 05:59 Intake Total 1090 1040 Output Total 400 150 Balance 690 890 Intake: Oral (ml) 1090 1040 Output: Urine (ml) 400 150 Toilet 400 150 Other: Number of Voids Toilet 1 Number of Stools Toilet 2 Vital Signs Temp Pulse Resp BP Pulse Ox 36.7 C 63 17 129/82 H 90 L 10/18/17 08:00 10/18/17 08:00 10/18/17 08:00 10/18/17 08:00 10/18/17 08:00 Laboratory Results 10/15/17 19:30 10/15/17 19:30 ICD10 Worksheet Patient Problems: Problems Problem Status Onset Diarrhea Acute Fever Acute Hematochezia Acute Hypovolemia dehydration Acute Protein-calorie malnutrition, mild Acute Ulcerative (chronic) enterocolitis Acute
[2017-10-18] MEDS ORDERED: THROMBIN (BOVINE) 20,000 UNIT VIAL TP ONE (12:27)
[2017-10-18] MEDS ORDERED: BUPIVACAINE 0.25% 30 ML SDV ONE (12:27)
[2017-10-18] MEDS ORDERED: AVITENE POWDER 1 GM JAR TP ONE (12:28)
[2017-10-18] MEDS ORDERED: BACITRACIN 50,000 UNITS/10 ML SYR IRR ONE (12:29)
[2017-10-18] MEDS ORDERED: LR 1,000 ML IV ONE (12:40)
[2017-10-18] MEDS ORDERED: ceFAZolin 2 GM/SWFI 20 ML SYR IVP ONE (13:12)
[2017-10-18] MEDS ORDERED: ACETAMINOPHEN 500 MG TAB ONE (13:12)
[2017-10-18] MEDS ORDERED: GABAPENTIN 300 MG CAP ONE (13:27)
--- NOTE | 2017-10-18 13:44 | PDANEPAE ---
ANE History of Present Illness Severe lumbar stenosis ANE Past Medical History - Cardiovascular History Hx Hypertension: No Hx Arrhythmias: No Hx Chest Pain: No Hx Coronary Artery / Peripheral Vascular Disease: No Hx CHF / Valvular Disease: No Hx Palpitations: No - Pulmonary History Hx COPD: Yes Hx Asthma/Reactive Airway Disease: No Hx Recent Upper Respiratory Infection: No Hx Oxygen in Use at Home: No Hx Sleep Apnea: Yes Sleep Apnea Screening Result - Last Documented: Positive Pulmonary History Comment: COPD. 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 N AND T TOES. HX MIGRAINES REMOTE - Endocrine History Hx Diabetes: No - Renal History Hx Renal Disorders: Yes Renal History Comment: BPH. SELF CATH- DOENSNT FEEL THE URGE TO GO - Liver History Hx Hepatic Disorders: Yes Hepatic History Comment: ENLARGED LIVER HX-LIVER HAS SHRUNK IN SIZE DUE TO MEDS - CERDELGA - Neurological & Psychiatric Hx Hx Neurological and Psychiatric Disorders: No - Cancer History Hx Cancer: No - Congenital Disorder History Hx Congenital Disorders: Yes Congenital History Comment: GAUCHERS DZ - GI History Hx Gastrointestinal Disorders: Yes Gastrointestinal History Comment: HX ULCERATIVE COLITIS- TX RESOLVED. POLYPS - Other Health History Other Health History: BACK COMPRESSION L4-5 AND BONE SPURS. CHRONIC ANEMIA, HGB 12 OR ABOVE NORMALLY. MSSA SEPTIC ARTHRITIS L HIP - ON CHRONIC BACTRIM USE - Chronic Pain History Chronic Pain: Yes (LOW BACK, OLEG LEGS) - Surgical History Prior Surgeries: OLEG HIP REPL. L TKA. R ARM LIPOMA REM. SPLEENECTOMY ANE Review of Systems Review of Systems: ANE Patient History - Allergies Allergies/Adverse Reactions: trolamine salicylate [From Aspercreme] Allergy (Intermediate, Verified 07/15/17 13:03) Rash vancomycin Allergy (Verified 07/15/17 13:03) RASH AT IV SITE - Home Medications Home Medications: Eliglustat Tartrate [Cerdelga] 84 mg PO BID 11/14/15 [Last Taken 10/15/17 18:00] Herbal Drugs 1 unit PO DAILY 07/15/17 [Last Taken Unknown] oxyCODONE IR [Oxycodone Ir (*)] 10 mg PO TID 07/15/17 [Last Taken 10/15/17] Doxycycline Hyclate [Vibramycin 100 MG (*)] 100 mg PO BID 10/15/17 [Last Taken 10/15/17] predniSONE 2 mg PO Q2D 10/15/17 [Last Taken 10/14/17] predniSONE 5 mg PO Q2D 10/15/17 [Last Taken 10/14/17] predniSONE [predniSONE] 10 mg PO Q2D 10/15/17 [Last Taken 10/15/17] - NPO status NPO Since - Liquids (Date): 10/18/17 NPO Since - Liquids (Time): 00:00 NPO Since - Solids (Date): 10/18/17 NPO Since - Solids (Time): 00:00 - Anes Hx Anes Hx: awareness under anesthesia - Smoking Hx Smoking Status: Former smoker - Family Anes Hx Family Hx Anesthesia Complications: NONE ANE Labs/Vital Signs - Labs Result Diagrams: 10/15/17 19:30 10/15/17 19:30 - Vital Signs Blood Pressure: 119/77 Heart Rate: 61 Respiratory Rate: 18 O2 Sat (%): 91 Height: 165.1 cm Weight: 75.6 kg ANE Physical Exam - Airway Neck exam: FROM Mallampati Score: Class 2 Mouth exam: normal dental/mouth exam - Pulmonary Pulmonary: no respiratory distress - Cardiovascular Cardiovascular: regular rate and rhythym - ASA Status ASA Status: III ANE Anesthesia Plan Anesthesia Plan: general endotracheal anesthesia
[2017-10-18] MEDS ORDERED: MIDAZOLAM 2 MG/2 ML VIAL IVP ONE (13:52)
[2017-10-18] MEDS ORDERED: fentaNYL 100 MCG/2 ML INJ ONE ×3 (14:01→16:27)
[2017-10-18] MEDS ORDERED: LIDOCAINE 2% 5 ML SDV ONE (14:02)
[2017-10-18] MEDS ORDERED: PROPOFOL/EMULSION 500 MG/50 ML BOTTLE IV ONE (14:02)
[2017-10-18] MEDS ORDERED: REMIFENTANIL HCL 1 MG VIAL ONE (14:02)
[2017-10-18] MEDS ORDERED: ROCURONIUM 50 MG/5 ML VIAL ONE (14:04)
[2017-10-18] MEDS ORDERED: HYDROCORTISONE 100 MG/2 ML VIAL ONE ×2 (14:22→15:31)
[2017-10-18] MEDS ORDERED: epHEDrine SULFATE 10 MG/ML SYR ONE (14:53)
--- NOTE | 2017-10-18 15:00 | POSTOPPROG ---
Post Op Note Date of Operation: 10/18/17 Surgeon: Mishel Shen Glass Polisher: TIM Shen Anesthesia: GET(General Endotracheal) Pre-op Diagnosis: lumbar stenosis, radiculopathy Post-op Diagnosis: lumbar stenosis, radiculopathy Indication: lumbar stenosis, radiculopathy Procedure: L4/5 laminectomy Inf/Abcess present in the surg proc area at time of surgery?: No EBL: Minimal PA Addendum - Addendum .: S: low back pain, denies any post op nausea. O: NAD A&O x3 MAEx4 5/5 and equal in BUE and BLE A/P 67 y/o male s/p L4/5 laminectomy -Advance diet as tolerated -Optimize pain management -PT/OT -DVT prophx: TEDs, SCDs, Lovenox okay POD1 -Preop stress dose of steroids given. Anesthesia has also written for additional post op stress dose. -Please notify NS with any change in neuro/motor exam
[2017-10-18] MEDS ORDERED: ONDANSETRON 4 MG/2 ML VIAL ONE (15:24)
[2017-10-18] MEDS ORDERED: PROMETHAZINE HCL 25 MG/ML INJ IVP PRN (15:52)
[2017-10-18] MEDS ORDERED: NALOXONE HCL 0.4 MG/ML INJ IVP PRN (15:52)
[2017-10-18] MEDS ORDERED: ONDANSETRON 4 MG/2 ML VIAL IVP PRN (15:52)
--- NOTE | 2017-10-18 16:18 | POSTANESTH ---
Post Anesthetic Evaluation Cardiovascular Status: Similar to Pre-Op Cond Respiratory Status: Similar to Pre-op Cond. Level of Consciousness/Mental Status: Alert and Oriented Pain Control: Adequate, Prn Tx Ordered Nausea/Vomiting Control: Adequate, Prn Tx Ordered Complications Possibly Related to Anesthesia: None Noted (Moving all ext and good vision)
[2017-10-18] MEDS: fentaNYL 100 MCG/2 ML INJ IVP PRN ×2 (16:43→16:58)
--- NOTE | 2017-10-18 16:50 | GOP ---
[f rep st] OPERATIVE REPORT DATE OF OPERATION: 10/18/2017 SURGEON: Efraín Marshall MD AUTO MECHANIC: Mishel Shen PA-C. ANESTHESIA: General. PREOPERATIVE DIAGNOSIS: 1. Severe lumbar spondylosis. 2. Severe L4-L5 spinal stenosis. 3. Intractable low back pain and lower extremity radiculopathy. 4. Treatment refractory to nonoperative intervention. POSTOPERATIVE DIAGNOSIS: 1. Severe lumbar spondylosis. 2. Severe L4-L5 spinal stenosis. 3. Intractable low back pain and lower extremity radiculopathy. 4. Treatment refractory to nonoperative intervention. PROCEDURE PERFORMED: 1. Decompressive laminectomy with bilateral medial facetectomies, L4-L5. 2. Use of intraoperative fluoroscopy, less than 1 hour physician time. 3. Use of neuromonitoring. 4. Use of operative microscope. FINDINGS: per imaging SPECIMENS: None. ESTIMATED BLOOD LOSS: 20 mL INDICATIONS: The patient is a 67-year-old gentleman with a very complicated medical history, including Gaucher syndrome who presents with intractable low back pain and difficulty with ambulation secondary to lower extremity pain and weakness. The patient had imaging studies consistent with diffuse lumbar spondylosis and severe spinal stenosis at L4-L5. After discussion of risks, benefits, and treatment alternatives, we decided to proceed forth with surgery as described above. DESCRIPTION OF PROCEDURE: The patient was brought to the operating theater and underwent general endotracheal anesthesia without complications. He had Venodyne's, MARÍA hose, and the appropriate lines placed by Anesthesia. He was flipped prone onto Colin frame and all bony prominences inspected and padded. The lower lumbar region was prepped and draped in the usual sterile surgical fashion. A time-out was completed per protocol and the patient received antibiotics within 1 hour of incision. Using lateral fluoroscopy and a spinal needle, we picked our entry point at the L4-L5 level. This was marked in the midline. The incision was infiltrated with Marcaine with epinephrine. The incision was taken down with the scalpel blade and then using monopolar, taken down to the midline through lumbodorsal fascia and a subperiosteal dissection carried out to the medial facet joints of L3-L4 and L4-L5. Deep retractors were placed to maintain exposure. We again confirmed the level using lateral fluoroscopy. The microscope was brought into the field to assist with microscopic dissection and to maintain illumination and magnification. Using a combination of the bur tip on the drill bit, Juan punches and Leksell rongeur, we completed decompressive laminectomy with bilateral medial facetectomies at L4-L5. We also completed a lateral recess decompression. The spinal cord was severely compressed at the beginning of the case. It was noted to be well decompressed by the end. The neuromonitoring was also improved by the end of the decompression. At this point, we obtained hemostasis with the bipolar and the wound was irrigated copiously with bacitracin irrigation. The wound was then closed in multiple layers using Vicryl sutures in the deep layers and Dermabond for the skin. The patient's wounds were dressed sterilely. He was flipped supine onto the transfer cart, where he was awakened, extubated, and taken to the recovery room in stable condition. There were no complications or noted changes on neuromonitoring throughout the procedure. COMPLICATIONS: None. /[id number]/MODL MTDD
[2017-10-18] MEDS ORDERED: HYDROmorphONE/DILAUDID 2 MG/ML INJ ONE (17:03)
[2017-10-18] MEDS: HYDROmorphONE/DILAUDID 2 MG/ML INJ IVP PRN ×2 (17:03→17:29)
[2017-10-18] MEDS ORDERED: ceFAZolin 2 GM/DEXTROSE 100 ML IV SCH (22:00)
[2017-10-18] MEDS: ceFAZolin 2 GM/SWFI 2 GM/20 ML SYR IVP SCH (22:08)
[2017-10-19] MEDS: ceFAZolin 2 GM/SWFI 2 GM/20 ML SYR IVP SCH (06:11)
[2017-10-19] MEDS: oxyCODONE IR 15 MG TAB PO PRN ×3 (06:22→15:51)
[2017-10-19] MEDS: CHOLECALCIFEROL VIT D3 2,000 UNITS TAB/CAP PO SCH (07:36)
[2017-10-19] MEDS: predniSONE 10 MG TAB PO SCH (07:37)
[2017-10-19] MEDS: DOXYCYCLINE HYCLATE 100 MG CAP/TAB PO SCH ×2 (07:38→21:46)
[2017-10-19] MEDS: [UNRECOGNIZED DRUG - OTHER] PO SCH ×2 (07:39→21:46)
[2017-10-19] MEDS: PREGABALIN 50 MG CAP PO SCH ×2 (11:25→19:19)
[2017-10-19] MEDS: DULoxetine 30 MG CAP PO SCH (11:27)
[2017-10-19] MEDS: LORazepam 1 MG TAB PO SCH ×3 (11:27→21:46)
--- NOTE | 2017-10-19 12:23 | SOAPPROG ---
SOAP Progress Note Assessment/Plan: Assessment: Plan: 10/19/17 12:19 neurogenic bladder, patient not bothered by it. Will add flomax to see if there is any benefit chronic hypoxia--will reduce oxygen titration goal and wean oxygen as possible s/p decompression of sever spinal stenosis--he is doing better. He would like more post op instruction guidelines Gaucher's disease--stable colitis--quiescent with prednisone currently nasal congestion--hopefully oxygen humidification, reduced flow rate and flonase will help. anticipate d/c home tomorrow with [facility] for PT/OT Subjective: Tigre is feeling significantly better after decompressive surgery yesterday. Low back pain and wrap around hip pain is much better. He has lots of questions about what he can and can't do. He had somewhat of a neurogenic bladder history. Objective: Vital Signs Temp Pulse Resp BP Pulse Ox 36.6 C 56 L 16 108/70 93 10/19/17 07:26 10/19/17 07:26 10/19/17 07:26 10/19/17 07:26 10/19/17 07:26 Laboratory Results 10/15/17 19:30 10/15/17 19:30 10/18/17 10/19/17 10/20/17 05:59 05:59 05:59 Intake Total 1040 1780 Output Total 150 925 Balance 890 855 Gen: comfortable HEENT: nasal stuffiness Lungs: CTAB Heart: RRR Abd + bs soft LE's no edema PVR 500+ ICD10 Worksheet Patient Problems: Problems Problem Status Onset Diarrhea Acute Fever Acute Hematochezia Acute Hypovolemia dehydration Acute Protein-calorie malnutrition, mild Acute Ulcerative (chronic) enterocolitis Acute
[2017-10-19] MEDS: FLUTICASONE NASAL 120 SPRAYS/16 GM MDI EACHNARE SCH ×2 (13:34→14:01)
[2017-10-19] MEDS: OXYMETAZOLINE 30 ML NASAL SPRAY EACHNARE SCH ×2 (13:34→22:39)
[2017-10-19] MEDS: TAMSULOSIN HCL 0.4 MG CAP PO SCH (13:35)
--- NOTE | 2017-10-19 14:01 | ASMTCMCOM ---
CM Note CM Note Notes: Today PT rec home vs HHC. Pt declines home health, reports he has had home health care after other surgeries and does not see a need currently. Pt likely d/c tomorrow, pt informed CM can arrange HHC if he changes his mind. Date Signed: 10/19/2017 02:00 PM Electronically Signed By:SANGEETA Villeda
[2017-10-19] MEDS: DIAZEPAM 5 MG TAB PO PRN (15:52)
[2017-10-20] MEDS: oxyCODONE IR 15 MG TAB PO PRN ×2 (00:26→09:46)
[2017-10-20] MEDS: DIAZEPAM 5 MG TAB PO PRN (00:26)
[2017-10-20 05:13] LABS: PLATELET COUNT 373 10^3/uL (150-400)
[2017-10-20 08:21] VITALS: BP 122/84
[2017-10-20] MEDS: predniSONE 1 MG TAB PO SCH (09:44)
[2017-10-20] MEDS: DULoxetine 30 MG CAP PO SCH (09:45)
[2017-10-20] MEDS: LORazepam 1 MG TAB PO SCH (09:45)
[2017-10-20] MEDS: predniSONE 5 MG TAB PO SCH (09:45)
[2017-10-20] MEDS: DOXYCYCLINE HYCLATE 100 MG CAP/TAB PO SCH (09:45)
[2017-10-20] MEDS: TAMSULOSIN HCL 0.4 MG CAP PO SCH (09:46)
[2017-10-20] MEDS ORDERED: HYDROmorphONE/DILAUDID 4 MG TAB PO PRN (09:47)
[2017-10-20] MEDS: CHOLECALCIFEROL VIT D3 2,000 UNITS TAB/CAP PO SCH (09:47)
--- NOTE | 2017-10-20 09:51 | SOAPPROG ---
SOAP Progress Note Assessment/Plan: Assessment: Plan: 10/19/17 12:19 neurogenic bladder, patient not bothered by it. Will add flomax to see if there is any benefit chronic hypoxia--will reduce oxygen titration goal and wean oxygen as possible s/p decompression of sever spinal stenosis--he is doing better. He would like more post op instruction guidelines Gaucher's disease--stable colitis--quiescent with prednisone currently nasal congestion--hopefully oxygen humidification, reduced flow rate and flonase will help. anticipate d/c home tomorrow with [facility] for PT/OT 10/20/17 09:49 s/p l-spine decompression--d/c home. Will have NS provide incision care instructions, activity limitations. Will Rx dilaudid po for post op pain control at home per patient request chronic hypoxia--stable Gaucher's disease, continue current therapy office f/u in 1-2 weeks Subjective: Tigre slept well. Post op incisional pain as expected. No bladder pain. Voided 500 ml last night. Leg/hip pain remains to be improved. He would like po dilaudid for home pain management for the first week after surgery Objective: Vital Signs Temp Pulse Resp BP Pulse Ox 36.9 C 54 L 18 122/84 H 97 10/20/17 08:00 10/20/17 08:00 10/20/17 08:00 10/20/17 08:00 10/20/17 08:00 Laboratory Results 10/20/17 04:25 10/20/17 04:25 10/19/17 10/20/17 10/21/17 05:59 05:59 05:59 Intake Total 1780 1390 Output Total 925 500 Balance 855 890 Gen: sleepy, NAD Lungs: CTAB Heart: RRR Abd + bs soft LE's no edema anemia--chronic ICD10 Worksheet Patient Problems: Problems Problem Status Onset Diarrhea Acute Fever Acute Hematochezia Acute Hypovolemia dehydration Acute Protein-calorie malnutrition, mild Acute Ulcerative (chronic) enterocolitis Acute
--- NOTE | 2017-10-20 09:52 | PDIAF ---
- Diagnosis Diagnosis: l-spine decompression surgery Code Status: Full Code - Medication Management Discharge Medications: Medications to Continue on Transfer DULoxetine [Cymbalta 30 MG (*)] 30 mg PO DAILY@1000 #0 cap 11/01/15 [Last Taken 10/15/17] LORazepam [Ativan (*)] 1 mg PO TID@1000,1800,2200 #0 tab 11/01/15 [Last Taken ] Pregabalin [Lyrica 50mg (*)] 100 mg PO BID@1000,1800 #0 cap 11/01/15 [Last Taken 07/15/17] Eliglustat Tartrate [Cerdelga] 84 mg PO BID 11/14/15 [Last Taken 10/15/17 18:00] Herbal Drugs 1 unit PO DAILY 07/15/17 [Last Taken Unknown] oxyCODONE IR [Oxycodone Ir (*)] 10 mg PO TID 07/15/17 [Last Taken 10/15/17] Doxycycline Hyclate [Vibramycin 100 MG (*)] 100 mg PO BID 10/15/17 [Last Taken 10/15/17] predniSONE 2 mg PO Q2D 10/15/17 [Last Taken 10/14/17] predniSONE 5 mg PO Q2D 10/15/17 [Last Taken 10/14/17] predniSONE [predniSONE] 10 mg PO Q2D 10/15/17 [Last Taken 10/15/17] Cane 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 PICC Care - Routine: N/A - Orders Services needed: Physical Therapy, Occupational Therapy Isolation Type: None Diet Recommendation: no restrictions on diet Diet Texture: Regular Texture Diet Lopez: No - Follow Up Care Current Providers and Referrals: Phuc Soriano MD [Primary Care Provider] -
[2017-10-20] MEDS: OXYMETAZOLINE 30 ML NASAL SPRAY EACHNARE SCH (10:05)
--- NOTE | 2017-10-20 10:29 | SOAPPROG ---
SOAP Progress Note Assessment/Plan: Assessment: 67 yo male POD #2 sp L4/5 laminectomy doing well Plan: DC home today Post op instructions provided verbally Follow up with Dr. Marshall in 10-14 days 10/20/17 10:25 Subjective: awake, alert, pain well controlled no new issues He is eager to go home today Objective: Vital Signs Temp Pulse Resp BP Pulse Ox 36.9 C 54 L 18 122/84 H 97 10/20/17 08:00 10/20/17 08:00 10/20/17 08:00 10/20/17 08:00 10/20/17 08:00 Laboratory Results 10/20/17 04:25 10/20/17 04:25 10/19/17 10/20/17 10/21/17 05:59 05:59 05:59 Intake Total 1780 1390 Output Total 925 500 Balance 855 890 Dressing: CDI Neuro: LOPES, sens +LT right EHL4/5 ambulatory ICD10 Worksheet Patient Problems: Problems Problem Status Onset Diarrhea Acute Fever Acute Hematochezia Acute Hypovolemia dehydration Acute Protein-calorie malnutrition, mild Acute Ulcerative (chronic) enterocolitis Acute
[2017-10-20] MEDS: PREGABALIN 50 MG CAP PO SCH (12:09)
[2017-10-20] MEDS: [UNRECOGNIZED DRUG - OTHER] PO SCH (12:09)
[2017-10-20] MEDS: FLUTICASONE NASAL 120 SPRAYS/16 GM MDI EACHNARE SCH (12:13)
== END 2017-10-20 13:29 | disposition home or self-care (01) | DRG 516 ==
LOC: OBSVTOIN 17:47 → F1N 17:47 → F3N 10-18 14:16
PROVIDERS: ADMIT Internal Medicine; ATTEND Internal Medicine
PROC: 01NB0ZZ Release Lumbar Nerve, Open Approach (ICD-10-PCS; principal; 2017-10-18 14:00)
PROC: 4A1004G Monitoring of Central Nervous Electrical Activity, Intraoperative, Open Approach (ICD-10-PCS; principal; 2017-10-18 14:00)
DX: M47.26 Other spondylosis with radiculopathy, lumbar region (principal); M48.061 Spinal stenosis, lumbar region without neurogenic claudication; K51.90 Ulcerative colitis, unspecified, without complications; E75.22 Gaucher disease; J44.9 Chronic obstructive pulmonary disease, unspecified; M81.0 Age-related osteoporosis without current pathological fracture; E55.9 Vitamin D deficiency, unspecified; D50.9 Iron deficiency anemia, unspecified; E75.6 Lipid storage disorder, unspecified; G47.30 Sleep apnea, unspecified; R09.02 Hypoxemia; Z96.643 Presence of artificial hip joint, bilateral; Z79.52 Long term (current) use of systemic steroids
CPT/HCPCS: 97116-GP; 97161-GP; 97164-GP; 97165-GO; 97530-GP; 97535-GO; G8978-GP-CH; G8978-GP-CI; G8979-GP-CH; G8980-GP-CH; G8987-GO-CJ; G8988-GO-CI; J0171; J0690; J1170; J1720; J2250; J2405; J2704; J3010; J7512

== ENCOUNTER → 2018-04-24 | Outpatient (CLI) | payer OTHER | LOC: FIMAGING 16:40 | PROVIDERS: ATTEND Internal Medicine | DX: R06.02 Shortness of breath (principal); R07.89 Other chest pain ==

== ENCOUNTER → 2018-04-25 | Outpatient (CLI) | payer OTHER | LOC: BHFA 04-24 14:00 | PROVIDERS: ATTEND Internal Medicine Cardiovascular Disease | DX: R07.9 Chest pain, unspecified (principal) ==